=== PATIENT | female | born 1960 | race Caucasian/White ===

== ENCOUNTER 2020-04-11 08:02 | Inpatient (IN) ==
[2020-04-11] MEDS ORDERED: Lidocaine -MPF 4% 5 ML AMPUL ONE (08:39)
[2020-04-11] MEDS ORDERED: Lidocaine -MPF 2% 2 ML VIAL ONE (08:39)
[2020-04-11] MEDS ORDERED: *HR* Propofol 200 MG/20 ML VIAL IVP ONE (08:39)
[2020-04-11] MEDS ORDERED: *HR* Succinylcholine 200 MG/10 ML VIAL IVP ONE (08:39)
[2020-04-11] MEDS ORDERED: *HR* Promethazine 25 MG/ML VIAL IVP PRN (08:42)
[2020-04-11] MEDS ORDERED: *HR* HYDROmorphone PF 0.5 MG/0.5 ML SYRINGE IVP PRN (08:42)
[2020-04-11] MEDS ORDERED: Ondansetron 4 MG/2 ML VIAL IVP ONE (08:42)
[2020-04-11] MEDS ORDERED: *HR* OxyCODONE Immed Rel 5 MG TABLET PO PRN ×2 (08:42→15:11)
[2020-04-11] MEDS ORDERED: CeFAZolin Syr 2,000MG/20 ML 2,000 MG/20 ML SYRINGE IVPB ONE (08:53)
[2020-04-11] MEDS ORDERED: Ringers Solution, Lactated 1,000 ML IVC SCH ×2 (09:00→15:11)
[2020-04-11] MEDS ORDERED: Acetaminophen IV 1,000 MG/100 ML INFUS..BTL IVPB ONE (09:01)
[2020-04-11] MEDS ORDERED: Ropivacaine/PF 0.5% 30 ML VIAL ONE (10:41)
[2020-04-11] MEDS ORDERED: ROPIVACAINE/PF/NS 0.25% 1 EACH SYRINGE INTRAART ONE (10:41)
[2020-04-11] MEDS ORDERED: *HR* FentaNYL (PF) 100 MCG/2 ML VIAL ONE (10:47)
[2020-04-11] MEDS ORDERED: *HR* Midazolam HCl 2 MG/2 ML VIAL ONE (10:47)
[2020-04-11] MEDS ORDERED: EPHEDrine 50 MG/ML VIAL ONE ×2 (11:37→13:43)
[2020-04-11] MEDS ORDERED: Ethanol\\Acetic Acid\\Na Ace\\Ben 1,000 ML IRRIG.SOLN IR ONE (12:46)
[2020-04-11] MEDS ORDERED: *HR* PHENYLEPHRINE 1,000 MCG/10 ML SYRINGE IVP ONE (13:29)
[2020-04-11] MEDS ORDERED: Ondansetron 4 MG/2 ML VIAL ONE (13:33)
[2020-04-11] MEDS ORDERED: Dexamethasone 4 MG/ML VIAL ONE (13:33)
[2020-04-11 15:07] LABS: Hematocrit 40.8 % (35.3-44.9); Hemoglobin 13.1 g/dL (11.5-15.4)
[2020-04-11] MEDS ORDERED: *HR* OxyCODONE/APAP 5/325 TABLET PO PRN (15:11)
[2020-04-11] MEDS ORDERED: Melatonin 3 MG TABLET PO PRN (15:11)
[2020-04-11] MEDS ORDERED: Naloxone 0.4 MG/ML INJ IVP PRN (15:11)
[2020-04-11] MEDS ORDERED: Dextrose Gel 15 GM/37.5 ML TUBE PO PRN ×2 (15:11)
[2020-04-11] MEDS ORDERED: *HR* Dextrose 50 % in Water (Vial) 50 ML VIAL IVP PRN (15:11)
[2020-04-11] MEDS ORDERED: MOM Conc 10 ML UD.LIQ PO PRN (15:11)
[2020-04-11] MEDS ORDERED: Sennosides 8.6 MG TABLET PO PRN (15:11)
[2020-04-11] MEDS ORDERED: Ondansetron 4 MG/2 ML VIAL IVP PRN (15:11)
[2020-04-11] MEDS ORDERED: D5% in Water 1,000 ML IVC PRN (15:11)
[2020-04-11] MEDS ORDERED: CeFAZolin 2 GM/120 ML BAG IVPB SCH (16:00)
[2020-04-11] MEDS: Insulin LISPRO 300 UNITS/3 ML VIAL SQ SCH ×2 (16:23→17:17)
[2020-04-11 17:02] VITALS: BP 111/66
[2020-04-11] MEDS ORDERED: *HR* Enoxaparin 30 MG/0.3 ML SYRINGE SQ SCH ×2 (18:00)
[2020-04-11] MEDS ORDERED: Insulin LISPRO 300 UNITS/3 ML VIAL SQ SCH (21:00)
[2020-04-12] MEDS ORDERED: TURMERIC 600 MG PO SCH (09:00)
[2020-04-12] MEDS ORDERED: Loratadine 10 MG TABLET PO SCH (09:00)
[2020-04-12] MEDS ORDERED: Fluticasone Propionate Nasal 50 MCG/SPRAY BOTTLE NS SCH (09:00)
[2020-04-12] MEDS ORDERED: Multivit/Ca/Min/Fe/FA 1 TAB TABLET PO SCH (09:00)
[2020-04-12] MEDS ORDERED: OMEGA 1000 MG PO SCH (09:00)
[2020-04-12] MEDS ORDERED: ESTER C 500 MG PO SCH (09:00)
== END 2020-04-11 18:00 | disposition home or self-care (01) | DRG 483 ==
LOC: SAMDAY 08:02 → 3NENU 10:38
PROVIDERS: ADMIT Orthopaedic Surgery; ATTEND Orthopaedic Surgery